=== PATIENT | female | born 1965 | race Two or more races ===

== ENCOUNTER 2018-06-19 14:52 | Emergency (ER) | payer OTHER ==
[~2018-06-19] VITALS: Ht 154.9 cm; Wt 69.6 kg
[2018-06-19 14:58] VITALS: BP 148/90
[2018-06-19] MEDS ORDERED: DIPH,PERTUSS(ACELL),TET VAC/PF 0.5 ML IM-VACC ONE ×2 (15:28→15:30)
== END 2018-06-19 16:35 | disposition home or self-care (01) ==
LOC: ED 16:12
DX: S90.871A Other superficial bite of right foot, initial encounter (principal); W54.0XXA Bitten by dog, initial encounter; Y93.89 Activity, other specified; Y99.8 Other external cause status; Y92.89 Other specified places as the place of occurrence of the external cause
CPT/HCPCS: 90471; 90715

== ENCOUNTER 2018-06-21 12:07 | Emergency (ER) | payer OTHER ==
[~2018-06-21] VITALS: Ht 154.9 cm; Wt 70.1 kg
[2018-06-21 12:13] VITALS: BP 144/86
== END 2018-06-21 13:26 | disposition home or self-care (01) ==
LOC: ED 13:20
DX: S91.351D Open bite, right foot, subsequent encounter (principal); W54.0XXD Bitten by dog, subsequent encounter
CPT/HCPCS: 99281